=== PATIENT | female | born 1985 | race Caucasian/White ===

== ENCOUNTER 2023-05-21 05:15 | Emergency (ER) | payer BC, SELFPAY ==
[2023-05-21 05:16] VITALS: BP 150/110
[2023-05-21 05:45] VITALS: BMI 28.3
[2023-05-21 05:58] LABS: % Basophils 0.5 % (0-2); % Eosinophils 1.6 % (0-6); % Immature Granulocytes 0.3 % (0-0.5); % Lymphocytes 18.2 % (20.5-51.1); % Monocytes 6.4 % (1.7-9.3); Absolute Eosinophils 0.1 10^3/uL (0-0.7); Absolute Lymphocytes 1.6 10^3/uL (1.2-3.4); Absolute Monocytes 0.6 10^3/uL (0.1-0.6); Absolute Neutrophils 6.4 10^3/uL (1.4-6.5); Hematocrit 40.1 % (37.0-47.0); Hemoglobin 13.9 g/dL (12.0-16.0); Mean Corp Hgb Conc. 34.7 g/dL (33.0-37.0); Mean Corpuscular Hgb 30.2 pg (27.0-31.0); Mean Platelet Volume 11.5 fL (7.4-10.4); Nucleated Red Blood Cells % 0 %; Platelet Count 221 10^3/uL (130-400); Red Blood Cell Count 4.61 10^6/uL (4.20-5.40); Red Cell Dist. Width 12.3 % (11.5-14.5); White Blood Cell Count 8.8 10^3/uL (4.8-10.8)
[2023-05-21 06:07] LABS: HCG, Serum Qualitative Screen Negative
[2023-05-21 06:10] LABS: ALT (SGPT) 30 U/L (0-35); AST (SGOT) 26 U/L (14-36); Albumin 4.3 g/dl (3.5-5.0); Alkaline Phosphatase 93 U/L (38-126); Blood Urea Nitrogen 12 mg/dl (7-17); Calcium 9.5 mg/dl (8.4-10.2); Carbon Dioxide 25 mmol/L (22-30); Chloride 104 mmol/L (98-107); Estimated Creatinine Clearance > 125 ml/min; Glucose 129 mg/dl (70-99); Lipase 133 U/L (23-300); Potassium 4.1 mmol/L (3.5-5.1); Sodium 135 mmol/L (135-145); Total Bilirubin 0.7 mg/dl (0.2-1.3); Total Protein 7.1 g/dl (6.3-8.2); eGFR > 60.00
--- NOTE | 2023-05-21 06:26 | ED.GENMED ---
History of Present Illness
General
Chief Complaint: Abdominal Symptoms
Source: patient
Time Seen by Provider: 05/21/23 06:16
Travel History
Have you had any contact with someone who has COVID-19?: No
Do you have any symptoms of coronavirus? Fever > 100 degrees, chills, cough, shortness of breath, sore throat, loss of taste or smell, muscle aches, or headache?: No
History of Present Illness
History of Present Illness:
38-year-old female presents to the emergency room complaining of nausea, vomiting and abdominal pain. Patient initially had nausea vomiting about 4 days ago. She developed abdominal pain which has become more significant in intensity over the past
48 hours. She initially indicated the pain was more central abdomen but has since become located more in the lower abdomen. No fever. Patient has been taking ptob-iob-[id number] medication including Pepto-Bismol and Emetrol without improvement. No
urinary symptoms. No back pain.
Past History
Past History
ED Past Medical History: Hypercholesterolemia and Psychiatric (Anxiety)
ED Past Surgical History: None
Social History
Tobacco: Former smoker
Alcohol: Occasional
Personal: Single
Living: alone
Employment: Employed
Phy Exam
Physical Exam
Physical Exam:
General: Awake, Alert, Oriented X3. No acute distress.
Vitals: unremarkable
Head: Atraumatic
Eyes: Pupils equal, EOMI
Throat: Airway intact, no exudates
Neck: Trachea midline
Lungs: Clear and equal b/l
Heart: Regular rate, no murmurs
Abd: Soft, tender to palpation right lower abdomen, No pulsatile mass
Neuro: Nonfocal
Skin: Warm, dry, no rash
Extremities: pulses equal b/l, no edema
Course
Orders/Labs/Results
Orders:
Orders
05/21/23 05:24
Test Result ONCE
05/21/23 05:39
Complete Blood Count/With Diff Urgent
Comprehensive Metabolic Panel Urgent
HCG, Serum Qualitative Screen Urgent
Lipase Urgent
05/21/23 06:25
CT Abd/Pel (IV only)-DH only Urgent
Comment:
Reason For Exam: rlq abd pain
0.9% Sodium Chloride 1000 ml [Nss] 1,000 ml IV BOLUS
Ketorolac [Toradol] 15 mg IV NOW STA
Ondansetron Injectable [Zofran] 4 mg IV NOW STA
05/21/23 08:00
Urinalysis Reflex To Culture Urgent
Date Specimen was Collected: 05/21/23
Time Specimen was Collected: 05:24
05/21/23 08:47
Ondansetron Injectable [Zofran] 4 mg IV NOW STA
Abnormal Lab Results
05/21/23
05:39
MPV 11.5 H fL
(7.4-10.4)
Lymphocytes % 18.2 L %
(20.5-51.1)
Glucose 129 H mg/dl
(70-99)
05/21/23 05:39
05/21/23 05:39
Vital Signs
Initial and Last Documented VS:
Initial Vital Signs
Temp Pulse Resp BP Pulse Ox
97.9 F 72 18 150/110 98
05/21/23 05:16 05/21/23 05:16 05/21/23 05:16 05/21/23 05:16 05/21/23 05:16
Last Documented Vital Signs
Temp Pulse Resp BP Pulse Ox
98.9 F 62 18 138/84 97
05/21/23 06:43 05/21/23 06:43 05/21/23 05:16 05/21/23 08:00 05/21/23 08:15
MDM/Problems Addressed
Differential Diagnosis Includes:
Appendicitis, urinary tract infection, mesenteric adenitis
MDM/Problems Addressed:
Patient presents with right lower quadrant abdominal pain. CBC and BMP are unremarkable. Will obtain a CT scan with IV contrast to evaluate for appendicitis. BMI greater than 25 so IV contrast only. Will provide antiemetic and analgesia as well
as some IV fluids.
CT is read by radiology as no acute disease. Patient feels somewhat better after IV fluids and antiemetics. No evidence of an unstable process. Patient stable for discharge home.
*Radiology
Radiology exam reviewed: radiology read reviewed
*Pulse Oximetry
Patient hypoxic: no
*Critical Care Note
Total Time (30-74mins, 75-104mins- exclusive of procedures): Not Applicable
Patient Management
Social determinants of health affecting care: Strong social support
ED Attending Note
-
Portions of this chart may have been created with voice recognition software.� Occasional wrong word or��sound alike� substitutions may have occurred due to the inherent limitations of voice recognition software.
Discharge Plan
Departure
Patient Disposition: Home (Routine Discharge)
Date of Disposition: 05/21/23
Time of Disposition: 08:48
Patient with high blood pressure during this ER visit?: Yes
Condition: Good
Discharge Problem:
Acute nausea with nonbilious vomiting
Instructions: Clear Liquid Diet, BLOOD PRESSURE, Acute Nausea and Vomiting
Prescriptions:
New
ondansetron 4 mg tablet,disintegrating
4 mg PO Q8H PRN (Reason: nausea and vomiting) Qty: 14 0RF
No Action
bupropion HCl 150 mg Tablet Sustained-Release 12 Hr
150 mg PO DAILY
ezetimibe 10 mg Tablet
10 mg PO DAILY
rosuvastatin 20 mg Tablet
20 mg PO DAILY
semaglutide (weight loss)
SC .MONTHLY
Referrals:
Jayla Duenas CRNP [Family Provider] -
Stand Alone Forms: Return to Work
Interventions
Interventions:
*Risk Screen - Suicide Last Done: 05/21/23 05:16
*General Assessment Last Done: 05/21/23 05:56
*Neglect/Abuse Screening Last Done: 05/21/23 05:16
ED- Fall Risk Assessment Last Done: 05/21/23 05:56
*ED COVID-19 Vaccine History Last Done: 05/21/23 05:56
*Nursing Disposition Last Done: 05/21/23 09:17
TK-Eszdfv-Cvitgozsiz Assessment Last Done: 05/21/23 06:00
Discharge Date and Time
Discharge Date/Time: 05/21/23 09:18
[2023-05-21] MEDS: NSS 1000 IV (06:33)
[2023-05-21] MEDS: TORADOL 15 MG IV (06:34)
[2023-05-21] MEDS: ZOFRAN 4 MG IV ×2 (06:34→09:08)
[2023-05-21 06:43] VITALS: BP 147/102
[2023-05-21 07:16] VITALS: BP 152/99
[2023-05-21 08:00] VITALS: BP 138/84
[2023-05-21 08:13] LABS: Urine Albumin Trace (Neg - Trace); Urine Bilirubin Negative (Negative); Urine Character Clear (Clear); Urine Color Yellow; Urine Glucose Negative (Negative); Urine Ketone Negative (Negative); Urine Leukocyte Negative (Negative); Urine Nitrite Negative (Negative); Urine Occult Blood Negative (Negative); Urine Specific Gravity 1.015 (<1.030); Urine Urobilinogen Negative (Neg - 1+)
== END 2023-05-21 09:18 | disposition home or self-care (01) ==
LOC: EMR 05:15
PROVIDERS: Emergency Medicine; EMERGENCY PHYSICIAN Emergency Medicine; FAMILY PHYSICIAN Nurse Practitioner Family
DX: R11.2 Nausea with vomiting, unspecified (principal); R10.31 Right lower quadrant pain; R03.0 Elevated blood-pressure reading, without diagnosis of hypertension; Z87.891 Personal history of nicotine dependence
CPT/HCPCS: 99284; 96374; 96375; 96361 ×2; 96376; 74177; 80053; 81003; 83690; 84703; 85025; Q9967

== ENCOUNTER → 2023-09-10 12:59 | Outpatient (REF) | payer BC, SELFPAY | LOC: HWWDC 12:59 | PROVIDERS: ATTENDING PHYSICIAN Advanced Practice Midwife; FAMILY PHYSICIAN Family Medicine | DX: Z12.31 Encounter for screening mammogram for malignant neoplasm of breast (principal) | CPT/HCPCS: 77063; 77067 ==

== ENCOUNTER 2024-07-17 18:53 | Emergency (ER) | payer BC, SELFPAY ==
[2024-07-17 19:12] VITALS: BP 133/82
[2024-07-17 19:29] LABS: % Basophils 0.5 % (0-2); % Eosinophils 2.9 % (0-6); % Immature Granulocytes 0.3 % (0-0.5); % Lymphocytes 34.3 % (20.5-51.1); % Monocytes 6.7 % (1.7-9.3); % Neutrophils 55.3 % (42.2-75.2); Absolute Eosinophils 0.2 10^3/uL (0-0.7); Absolute Lymphocytes 2.5 10^3/uL (1.2-3.4); Absolute Monocytes 0.5 10^3/uL (0.1-0.6); Absolute Neutrophils 4.1 10^3/uL (1.4-6.5); Hematocrit 38.2 % (37.0-47.0); Mean Corpuscular Hgb 31.3 pg (27.0-31.0); Mean Corpuscular Volume 91.8 fL (81.0-99.0); Mean Platelet Volume 11.7 fL (7.4-10.4); Nucleated Red Blood Cells % 0 %; Platelet Count 177 10^3/uL (130-400); Red Blood Cell Count 4.16 10^6/uL (4.20-5.40); Red Cell Dist. Width 12.8 % (11.5-14.5); White Blood Cell Count 7.3 10^3/uL (4.8-10.8)
[2024-07-17 19:36] LABS: HCG, Serum Qualitative Screen Negative
[2024-07-17 19:50] LABS: Troponin I < 0.012 ng/ml
[2024-07-17 19:54] LABS: ALT (SGPT) 26 U/L (0-35); AST (SGOT) 22 U/L (14-36); Albumin 4.4 g/dl (3.5-5.0); Alkaline Phosphatase 54 U/L (38-126); Blood Urea Nitrogen 12 mg/dl (7-17); Calcium 9.8 mg/dl (8.4-10.2); Carbon Dioxide 27 mmol/L (22-30); Chloride 105 mmol/L (98-107); Glucose 96 mg/dl (70-99); Potassium 4.4 mmol/L (3.5-5.1); Sodium 139 mmol/L (135-145); Total Bilirubin 0.7 mg/dl (0.2-1.3); eGFR > 60.00
[2024-07-17 22:20] VITALS: BMI 25.6
--- NOTE | 2024-07-17 22:26 | ED.GENMED ---
History of Present Illness
General
Chief Complaint: Chest Pain
Source: patient
Exam Limitations: none
Time Seen by Provider: 07/17/24 22:07
History of Present Illness
History of Present Illness:
39yoF with a history of hyperlipidemia presenting with her father for chest pain. Symptoms began around noon today while she was sitting in her desk at work. She has been having intermittent discomfort throughout the day. Pain is located on the
right anterior chest and radiates to the neck and upper back. The pain lasts a few minutes before resolving and feels like a muscle spasm. Pain is worse with movement of the right arm. She has not taken anything ssme-vls-[id number] for her symptoms.
She is otherwise asymptomatic and denies any nausea, vomiting, shortness of breath, cough, dizziness, syncope, leg swelling, calf pain. Her brother has a history of HI at the age of 48 and she sees a blindstitch machine operator yearly.
Past History
Past History
ED Past Medical History: Hypercholesterolemia and Psychiatric (Anxiety)
ED Past Surgical History: None
Social History
Tobacco: Former smoker
Alcohol: Occasional
Personal: Single
Living: alone
Employment: Employed
Phy Exam
General Physical Exam
General Presentation: well appearing and no apparent distress
General age: appears stated age
General Skin: warm and dry
General Habitus: normal
General Mental: alert
ENT Exam
ENT Exam: normocephalic
Cardiovascular Exam
Cardiovascular Exam: regular rate/rhythm, no edema, no murmur and normal peripheral pulses (2+ DP pulses bilaterally)
Pulmonary Exam
Pulmonary Exam: lungs clear, no respiratory distress, no rales, no crackles, no rhonchi, no wheezing and other (There is reproducible tenderness to the R anterior chest and cervical portion of the R trapezius muscle.)
Neurological Exam
Neurological Exam: alert
[place] Coma Scale
Eye Opening: Spontaneous
Verbal Response: Oriented
Motor Response: Obeys Commands
GCS Total Score: 15
Skin Exam
Skin Exam: normal color and warm/dry
Psychiatric Exam
Psychiatric Exam: normal mood/affect
Scores
Heart Score for Chest Pain Patients
STEMI patient?: No
History: Slightly or Non-Suspicious
ECG: Normal
Age: </= 45 years
Risk Factors: 1 or 2 Risk Factors
Troponin: </= Normal Limit
Heart Score for Chest Pain Patients: 1
Heart Score Risk: 2.5% MACE over next 6 weeks
PE Wells Score
Symptoms of DVT: No
No alternative diagnosis better explains the illness: No
Tachycardia with pulse > 100: No
Immobilization (>=3 days) or surgery within previous 4 weeks: No
Prior history of DVT or pulmonary embolism: No
Presence of hemoptysis: No
Presence of malignancy: No
Pulmonary Embolism Risk Score: 0
Probability of PE: Pt is low risk
PERC Rule Criteria
Age <50 years: Yes
HR <100 bpm: Yes
Room air oxygen sat >94%: Yes
History of DVT or PE: No
Recent trauma or surgery: No
Hemoptysis: No
Exogenous estrogen: No
Clinical signs suggestive of DVT: No
: No
Considered low risk for PE: Yes
PERC Score: 0
PE can be excluded by PERC: Yes
Course
Orders/Labs/Results
Orders:
Orders
07/17/24 18:54
Electrocardiogram (*1) Urgent
Reason for Study: Chest Pain
EKG- Treatment ONCE
Test Result ONCE
07/17/24 19:18
Complete Blood Count/With Diff Urgent
Comprehensive Metabolic Panel Urgent
HCG, Serum Qualitative Screen Urgent
Troponin I Urgent
07/17/24 22:20
Electrocardiogram (*1) Urgent
Reason for Study: Chest Pain
EKG- Treatment ONCE
07/17/24 22:21
Ketorolac [Toradol] 15 mg IV NOW STA
CR Chest - 2 Views Urgent
Comment:
Reason For Exam: CP
07/17/24 22:33
Troponin I Urgent
Abnormal Lab Results
07/17/24
19:18
RBC 4.16 L 10^6/uL
(4.20-5.40)
MCH 31.3 H pg
(27.0-31.0)
MPV 11.7 H fL
(7.4-10.4)
07/17/24 19:18
07/17/24 19:18
Vital Signs
Initial and Last Documented VS:
Initial Vital Signs
Temp Pulse Resp BP Pulse Ox
98.6 F 63 15 133/82 98
07/17/24 19:12 07/17/24 19:12 07/17/24 19:12 07/17/24 19:12 07/17/24 19:12
Last Documented Vital Signs
Temp Pulse Resp BP Pulse Ox
98.6 F 63 18 133/82 98
07/17/24 19:12 07/17/24 22:30 07/17/24 22:30 07/17/24 19:12 07/17/24 22:30
MDM/Problems Addressed
Differential Diagnosis Includes:
39yoF here with intermittent R sided chest pain since noon. Radiates to the back. Worse with movement of the R arm. VSS. She is well-appearing no acute distress. There is reproducible chest wall tenderness and trapezius tenderness on exam.
Differential diagnosis includes but is not limited to: Musculoskeletal, pneumonia, pneumothorax, radiculopathy, doubt PE as heart rate is in the 60s exam and oxygen saturation 98%. She also denies any pleuritic pain.
Initial ED plan: Cardiac labs and EKG obtained in triage. EKG shows normal sinus rhythm without ischemic changes and troponin within normal limits. Will check delta troponin/EKG and chest x-ray. IV Toradol for pain.
*EKG
Interpreted by ED Provider?: Yes
EKG Intrepretation Date: 07/17/24
Heart Rate: 71
Rate: normal
Rhythm: sinus
[place]: normal axis
Interval: normal interval
QRS Pattern: right bundle branch block (incomplete)
Ischemia: no ischemia
*Critical Care Note
Total Time (30-74mins, 75-104mins- exclusive of procedures): Not Applicable
Update Note
Update Note:
Repeat EKG and troponin unchanged. Chest x-ray is clear without acute findings. Patient is feeling better after receiving Toradol. Suspect musculoskeletal pain. No indication for hospitalization. Supportive care discussed. Advised follow-up
with PCP. ED return precautions discussed. Patient in agreement with plan and was discharged in stable condition.
ED Attending Note
-
Portions of this chart may have been created with voice recognition software.� Occasional wrong word or��sound alike� substitutions may have occurred due to the inherent limitations of voice recognition software.
Discharge Plan
Departure
Patient Disposition: Home (Routine Discharge)
Date of Disposition: 07/17/24
Time of Disposition: 23:19
Patient with high blood pressure during this ER visit?: No
Discharge Problem:
Right-sided chest pain
Instructions: Chest Pain PCP Follow Up
Prescriptions:
No Action
bupropion HCl 150 mg Tablet Sustained-Release 12 Hr
150 mg PO DAILY
ezetimibe 10 mg Tablet
10 mg PO DAILY
rosuvastatin 20 mg Tablet
20 mg PO DAILY
semaglutide (weight loss)
SC .MONTHLY
ondansetron 4 mg tablet,disintegrating
4 mg PO Q8H PRN (Reason: nausea and vomiting) Qty: 14 0RF
Referrals:
NONE,* [Family Provider] -
Activity Restrictions/Additional Instructions:
Apply heat to affected area and take ibuprofen as needed for pain.
Please follow-up with your family doctor and blindstitch machine operator. Return to the ER with any new or worsening symptoms.
Interventions
Interventions:
*Risk Screen - Suicide Last Done: 07/17/24 19:12
*General Assessment Last Done: 07/17/24 19:12
*Neglect/Abuse Screening Last Done: 07/17/24 19:12
*ED- Fall Risk Assessment Last Done: 07/17/24 22:15
*ED COVID-19 Vaccine History Last Done: 07/17/24 19:12
ED- Cardiac Assessment Last Done: 07/17/24 22:15
Discharge Date and Time
Print Language: DANISH
[2024-07-17] MEDS: TORADOL 15 MG IV (22:27)
[2024-07-17 22:44] VITALS: BP 122/85
[2024-07-17 23:00] VITALS: BP 121/89
[2024-07-17 23:04] LABS: Troponin I < 0.012 ng/ml
== END 2024-07-17 23:36 | disposition home or self-care (01) ==
LOC: EMR 18:53
PROVIDERS: Emergency Medicine; Physician Assistant; EMERGENCY PHYSICIAN Emergency Medicine
DX: R07.89 Other chest pain (principal); E78.00 Pure hypercholesterolemia, unspecified; F41.9 Anxiety disorder, unspecified; Z82.49 Family history of ischemic heart disease and other diseases of the circulatory system; Z87.891 Personal history of nicotine dependence
CPT/HCPCS: 99283; 96374; 71046; 80053; 84484; 84703; 85025; 93005